=== PATIENT | male | born 1980 | race Caucasian/White ===

== ENCOUNTER → 2022-04-04 | Outpatient (CLI) | payer BC ==
--- NOTE | 2022-04-04 10:50 | Diagnostic Imaging Report ---
PROCEDURE: MRI right joint upper extremity without contrast. TECHNIQUE: Multiplanar, multisequence non contrast-enhanced MRI of the right upper extremity was accomplished. INDICATION: Right shoulder pain. COMPARISON: None FINDINGS: No acute fracture or dislocation is seen in the right shoulder. No joint effusion is seen. Alignment is normal. The supraspinatus tendon demonstrates mild tendinosis. The infraspinatus tendon is intact. The subscapularis tendon has a small low-grade partial-thickness tear at the insertion. The teres minor tendon is intact. There is no muscular atrophy. The long head of the biceps tendon is normal in course and signal. The glenoid labrum is suboptimally evaluated in the absence of intra-articular contrast. No para labral cyst is seen. The acromion has a curved undersurface without hooking. The coracoclavicular and coracoacromial ligaments are intact. Soft tissues about the right shoulder demonstrate no acute abnormalities. IMPRESSION: 1. Mild tendinosis with a small low-grade partial-thickness tear in the rotator cuff. No high-grade partial-thickness or full-thickness tear is seen in the rotator cuff. Dictated by: Dictated on workstation # [id number]
== END ==
LOC: RAD 07:31
PROVIDERS: ATTEND Family Medicine
DX: M19.011 Primary osteoarthritis, right shoulder (principal); M75.121 Complete rotator cuff tear or rupture of right shoulder, not specified as traumatic
CPT/HCPCS: 73221